=== PATIENT | male | born 1965 | race Caucasian/White ===

== ENCOUNTER 2024-09-14 19:26 | Inpatient (IN) | payer MEDICAID ==
[2024-09-13] MEDS: VECURONIUM BROMIDE 10 MG/VIAL IV ONE (22:13)
[~2024-09-14] VITALS: Ht 167.6 cm; Wt 87.1 kg
[2024-09-14] MEDS: LEVETIRACETAM 500MG PREMIX 100 ML IV ONE (20:00)
[2024-09-14 21:33] LABS: BASOPHILS % 0.2 % (0.0-2.0); HEMATOCRIT. 40.4 % (42.0-52.0); HEMOGLOBIN. 12.6 g/dL (14.0-18.0); LYMPHOCYTES % 18.4 % (20.0-50.0); MEAN CORPUSCULAR HEMOGLOBIN 27.9 pg (28.0-32.0); MEAN CORPUSCULAR HGB CONC 31.2 g/dL (31.0-37.0); MEAN CORPUSCULAR VOLUME 89.3 fL (80.0-94.0); MONOCYTES % 6.7 % (2.0-8.0); NEUTROPHILS % 72.7 % (40.0-76.0); RED BLOOD CELL COUNT 4.52 mill/uL (4.7-6.1); RED CELL DISTRIBUTION WIDTH 22.1 % (11.6-14.6); WHITE BLOOD COUNT 12.1 x1000/uL (4.5-11.0)
[2024-09-14] MEDS: PANTOPRAZOLE SODIUM 40 MG/VIAL IV STA (21:33)
[2024-09-14] MEDS ORDERED: PANTOPRAZOLE 80 MG in SODIUM CHLORIDE 0.9% 100 ML IV STA (21:33)
[2024-09-14 21:34] LABS: DIFFERENTIAL COMMENT 1
[2024-09-14 21:36] LABS: CHLORIDE 102 mEq/L (98-107); POTASSIUM 4.8 mEq/L (3.5-5.1); SODIUM 138 mEq/L (136-145)
[2024-09-14 21:37] LABS: CALCIUM 9.4 mg/dL (8.7-10.4); CARBON DIOXIDE 22 mEq/L (21-32); PROTHROMBIN TIME 11.6 sec (9.6-11.0)
[2024-09-14 21:42] LABS: CREATININE 1.9 mg/dL (0.6-1.3); GLUCOSE 234 mg/dL (70-105); UREA NITROGEN BLOOD 50 mg/dL (9-23)
[2024-09-14 21:44] LABS: ALANINE AMINOTRANSFERASE 69 IU/L (10-49); ALBUMIN 3.9 g/dL (3.2-4.8); ASPARTATE AMINOTRANSFERASE 105 IU/L (<34); BILIRUBIN DIRECT 0.5 mg/dL (<=3.0); BILIRUBIN TOTAL 1.4 mg/dL (0.1-1.0); PROTEIN TOTAL 6.9 g/dL (6.0-8.3); TROPONIN I HIGH SENSITIVITY 7 ng/L (3.0-53)
[2024-09-14] MEDS: VANCOMYCIN 1G PREMIX 200 ML IV ONE (21:45)
[2024-09-14] MEDS ORDERED: OCTREOTIDE 1,000 MCG in SODIUM CHLORIDE 0.9% 98 ML IV ONE (21:45)
[2024-09-14] MEDS: PIPERACILLIN/TAZO 3.375G/50ML 50 ML IV ONE (21:45)
[2024-09-14] MEDS: MIDAZOLAM 100MG/100ML PMX 100 ML IV STA (22:02)
[2024-09-14] MEDS: ETOMIDATE 2MG/ML 10ML VIAL IV ONE (22:12)
[2024-09-14] MEDS ORDERED: FENTANYL 2500MCG/250ML PMX 250 ML IV ONE (22:15)
[2024-09-14 22:19] LABS: MEAN PLATELET VOLUME 9.9 fl (7.4-10.4); PLATELET 158 x1000/uL (130-400)
[2024-09-14 22:25] VITALS: PULSE 72; RESP 16; O2SAT 100
[2024-09-14] MEDS: PANTOPRAZOLE 80 MG in SODIUM CHLORIDE 0.9% 100 ML IV ONE (22:30)
[2024-09-14] MEDS: LORAZEPAM 2MG/ML INJ IV ONE (22:31)
[2024-09-14 23:02] LABS: BASOPHILS % 0.3 % (0.0-2.0); EOSINOPHILS % 0.3 % (0.0-5.0); HEMATOCRIT. 43.9 % (42.0-52.0); HEMOGLOBIN. 14.1 g/dL (14.0-18.0); LYMPHOCYTES % 10.7 % (20.0-50.0); MEAN CORPUSCULAR HEMOGLOBIN 28.5 pg (28.0-32.0); MEAN CORPUSCULAR HGB CONC 32.1 g/dL (31.0-37.0); MEAN CORPUSCULAR VOLUME 88.7 fL (80.0-94.0); NEUTROPHILS % 79.7 % (40.0-76.0); RED BLOOD CELL COUNT 4.95 mill/uL (4.7-6.1)
[2024-09-14] MEDS: OCTREOTIDE ACETATE 50 MCG/ML 1ML IV STA (23:04)
[2024-09-14 23:11] LABS: DIFFERENTIAL COMMENT 1
[2024-09-14] MEDS ORDERED: NOREPINEPHRINE 8MG/250ML PMX 250 ML IV PRN (23:15)
[2024-09-14 23:33] LABS: MEAN PLATELET VOLUME 9.7 fl (7.4-10.4); PLATELET 124 x1000/uL (130-400)
[2024-09-14 23:42] VITALS: PULSE 150; RESP 16; O2SAT 100
[2024-09-14] MEDS: NOREPINEPHRINE 8 MG in DEXT 5% WATER 242 ML IV STA (23:53)
[2024-09-15] VITALS (99 sets, daily range): BP systolic 58–165; BP diastolic 38–113; PULSE 75–168; RESP 12–32; TEMP 36.44736–37.11408; O2SAT 95–100
[2024-09-15] MEDS: SODIUM CHLORIDE 0.9% (SEPSIS BOLUS) IV ONE (00:46)
[2024-09-15] MEDS ORDERED: MAGNESIUM/ALUMINUM HYDROXIDE/SIMETHICONE 30ML UDC PO PRN (01:15)
[2024-09-15] MEDS ORDERED: DOCUSATE SODIUM 100MG CAPSULE PO PRN (01:15)
[2024-09-15] MEDS ORDERED: ACETAMINOPHEN 325MG TABLET PO PRN (01:15)
[2024-09-15] MEDS ORDERED: ONDANSETRON HCL 4MG/2ML INJ IV PRN ×2 (01:15→01:30)
[2024-09-15 01:21] LABS: BG BASE EXCESS -8.2 mmol/L (-2.0-3.0); BG CARBOXYHEMOGLOBIN 0.5 % (0.5-1.5); BG DEOXYHEMOGLOBIN 1.1 % (0.0-5.0); BG FRACTION INSPIRED OXYGEN 60; BG HCO3 ACT 17.5 mmol/L (21.0-28.0); BG METHEMOGLOBIN 0.3 % (0.5-1.5); BG OXYGEN SATURATION 98.9 % (94.0-98.0); BG OXYHEMOGLOBIN 98.1 % (94.0-98.0); BG PCO2 36.6 mmHg (35.0-48.0); BG PH 7.297 (7.350-7.450); BG PO2 144.9 mmHg (83.0-108.0); BG SAMPLE SITE ALINE; BG TOTAL HEMOGLOBIN 14.2 g/dL (13.5-17.5); BG VENT MODE VENT - AC
[2024-09-15] MEDS ORDERED: VASOPRESSIN 20 UNIT in SODIUM CHLORIDE 0.9% 99 ML IV PRN (01:30)
[2024-09-15] MEDS ORDERED: EPINEPHRINE 10 MG in SODIUM CHLORIDE 0.9% 240 ML IV PRN (01:30)
[2024-09-15] MEDS ORDERED: PROPOFOL 10MG/ML 100ML 100 ML IV PRN (01:30)
[2024-09-15] MEDS: SODIUM CHLORIDE 0.9% 1,000 ML IV ONE ×2 (01:30→02:17)
[2024-09-15] MEDS ORDERED: PHENYLEPHRINE 100 MG in DEXT 5% WATER 240 ML IV PRN (01:30)
[2024-09-15] MEDS ORDERED: IPRATROPIUM/ALBUTEROL 0.5-3(2.5)MG/3ML NEB HHN PRN (01:30)
[2024-09-15 01:54] LABS: HEMATOCRIT 36.9 % (42.0-52.0); HEMOGLOBIN 11.9 g/dL (14.0-18.0)
[2024-09-15 02:11] LABS: IRON 291 ug/dL (65-175)
[2024-09-15 02:14] LABS: PHOSPHORUS 2.6 mg/dL (2.5-4.9); TOTAL IRON BINDING CAPACITY 327 ug/dl (250-425)
[2024-09-15] MEDS: PHENYLEPHRINE 100 MG in DEXT 5% WATER 240 ML IV PRN (02:17)
[2024-09-15] MEDS: SODIUM CHLORIDE 0.9% 1,000 ML IV SCH (02:17)
[2024-09-15] MEDS: FENTANYL CITRATE 2,500 MCG in SODIUM CHLORIDE 0.9% 200 ML IV PRN (02:23)
[2024-09-15] MEDS ORDERED: MAGNESIUM 2 G PREMIX 50 ML IV NR (02:45)
[2024-09-15] MEDS ORDERED: PIPERACILLIN/TAZO 3.375G/50ML 50 ML IV NR (02:45)
[2024-09-15] MEDS ORDERED: PANTOPRAZOLE SODIUM 40 MG/VIAL IV NR (02:45)
[2024-09-15] MEDS ORDERED: VANCOMYCIN 1G PREMIX 200 ML IV NR (02:45)
[2024-09-15 03:30] LABS: HEPATITIS B SURFACE ANTIGEN NEGATIVE (Negative)
[2024-09-15 03:51] LABS: HEPATITIS A AB IGM NEGATIVE (Negative); HEPATITIS B CORE AB IGM NEGATIVE (Negative)
[2024-09-15 03:52] LABS: HEPATITIS C AB NON REACTIVE (Neg) (Negative)
[2024-09-15] MEDS: OCTREOTIDE 1,000 MCG in SODIUM CHLORIDE 0.9% 98 ML IV ONE (03:56)
[2024-09-15] MEDS: EPINEPHRINE 10 MG in SODIUM CHLORIDE 0.9% 240 ML IV PRN (03:57)
[2024-09-15] MEDS: VASOPRESSIN 20 UNIT in SODIUM CHLORIDE 0.9% 99 ML IV PRN (04:56)
[2024-09-15] MEDS ORDERED: IOHEXOL-350 100 ML BOTTLE ONE (05:19)
[2024-09-15] MEDS: DEXT 5%/0.45% NACL 1000ML 1,000 ML IV SCH (06:51)
[2024-09-15] MEDS: MIDAZOLAM 100MG/100ML PMX 100 ML IV PRN ×2 (06:52→10:24)
[2024-09-15] MEDS: MAGNESIUM 2 G PREMIX 50 ML IV NR (06:54)
[2024-09-15] MEDS: SODIUM CHLORIDE 0.9% 500 ML IV ONE ×2 (08:43→10:20)
[2024-09-15 08:45] LABS: CLARITY URINE CLOUDY (CLEAR); COLOR URINE YELLOW (YELLOW); GLUCOSE URINE TRACE (NEGATIVE); KETONES URINE TRACE (NEGATIVE); LEUKOCYTE ESTERASE URINE 1+ (NEGATIVE); NITRITE URINE NEGATIVE (NEGATIVE); OCCULT BLOOD URINE NEGATIVE (NEGATIVE); PROTEIN URINE 1+ (NEGATIVE); SPECIFIC GRAVITY URINE 1.057 (1.005-1.030)
[2024-09-15] MEDS ORDERED: FOLIC ACID 1MG TABLET PO SCH (09:00)
[2024-09-15] MEDS ORDERED: LEVETIRACETAM 500MG in NACL 100ML PREMIX IV SCH (09:00)
[2024-09-15] MEDS ORDERED: MULTIVITAMINS,THER W-MINERALS TABLET PO SCH (09:00)
[2024-09-15 09:01] LABS: *AMPHETAMINES SCREEN URINE NEGATIVE (NEGATIVE); *BARBITURATES SCREEN URINE NEGATIVE (NEGATIVE); *BENZODIAZEPINES SCREEN URINE PRESUMPTIVE POSITIVE (NEGATIVE); *COCAINE SCREEN URINE NEGATIVE (NEGATIVE); METHADONE URINE SCREEN NEGATIVE (NEGATIVE); OPIATES URINE SCREEN NEGATIVE (NEGATIVE)
[2024-09-15 09:02] LABS: CANNABINOID URINE SCREEN NEGATIVE (NEGATIVE); ECSTASY MDMA SCREEN URINE NEGATIVE (NEGATIVE); PHENCYCLIDINE URINE SCREEN NEGATIVE (NEGATIVE)
[2024-09-15] MEDS: LEVETIRACETAM 500MG PREMIX 100ML IV SCH (09:13)
[2024-09-15 09:37] LABS: BACTERIA URINE 1+; RBC URINE NONE SEEN /hpf (0-2); SQUAMOUS EPITHELIAL CELL URINE NONE SEEN /lpf (RARE/1+); WBC URINE 15-25 /hpf (0-2); YEAST URINE NONE SEEN
[2024-09-15 09:55] LABS: CHLORIDE 108 mEq/L (98-107); POTASSIUM 3.8 mEq/L (3.5-5.1); SODIUM 138 mEq/L (136-145)
[2024-09-15 09:56] LABS: CARBON DIOXIDE 17 mEq/L (21-32); HEMATOCRIT 33.4 % (42.0-52.0); HEMOGLOBIN 10.7 g/dL (14.0-18.0); MEAN CORPUSCULAR HEMOGLOBIN 28.9 pg (28.0-32.0); MEAN CORPUSCULAR HGB CONC 32.2 g/dL (31.0-37.0); MEAN CORPUSCULAR VOLUME 89.9 fL (80.0-94.0); PLATELET 93 x1000/uL (130-400); RED BLOOD CELL COUNT 3.72 mill/uL (4.7-6.1); WHITE BLOOD COUNT 23.1 x1000/uL (4.5-11.0)
[2024-09-15 10:00] LABS: IRON 167 ug/dL (65-175)
[2024-09-15 10:01] LABS: CREATININE 2.2 mg/dL (0.6-1.3); GLUCOSE 342 mg/dL (70-105); UREA NITROGEN BLOOD 59 mg/dL (9-23)
[2024-09-15 10:03] LABS: CREATINE KINASE 95 IU/L (46-171); PHOSPHORUS 2.1 mg/dL (2.5-4.9); TOTAL IRON BINDING CAPACITY 293 ug/dl (250-425)
[2024-09-15 10:12] LABS: ETHANOL BLOOD < 10 mg/dL (<10)
[2024-09-15] MEDS: FENTANYL CITRATE/PF 2,500 MCG in SODIUM CHLORIDE 0.9% 200 ML IV PRN (10:28)
[2024-09-15] MEDS: NOREPINEPHRINE 8MG/250ML PMX 250 ML IV PRN (12:31)
[2024-09-15] MEDS: PANTOPRAZOLE 80 MG in SODIUM CHLORIDE 0.9% 100 ML IV SCH (14:41)
[2024-09-15] MEDS: PIPERACILLIN/TAZO 3.375G/100ML 100 ML IV SCH (14:47)
[2024-09-15] MEDS: VANCOMYCIN 1.25GM PMX (XELLIA) 250 ML IV SCH (14:47)
[2024-09-15] MEDS: OCTREOTIDE 1,000 MCG in SODIUM CHLORIDE 0.9% 98 ML IV SCH (20:52)
[2024-09-15] MEDS: PANTOPRAZOLE SODIUM 40 MG/VIAL IV SCH (21:01)
[2024-09-15 21:12] LABS: HEMATOCRIT 32.8 % (42.0-52.0); HEMOGLOBIN 10.4 g/dL (14.0-18.0)
[2024-09-16] VITALS (104 sets, daily range): BP systolic 65–164; BP diastolic 47–139; PULSE 66–123; RESP 11–25; TEMP 36.114–37.39188; O2SAT 80–100
[2024-09-16 01:21] LABS: HEMATOCRIT 34.5 % (42.0-52.0); HEMOGLOBIN 11.2 g/dL (14.0-18.0)
[2024-09-16 01:49] LABS: TROPONIN I HIGH SENSITIVITY 56 ng/L (3.0-53)
[2024-09-16 05:19] LABS: CARBON DIOXIDE 24 mEq/L (21-32); CHLORIDE 108 mEq/L (98-107); POTASSIUM 3.8 mEq/L (3.5-5.1); SODIUM 139 mEq/L (136-145)
[2024-09-16 05:20] LABS: CALCIUM 7.1 mg/dL (8.7-10.4)
[2024-09-16 05:24] LABS: IRON 76 ug/dL (65-175)
[2024-09-16 05:25] LABS: CREATININE 1.7 mg/dL (0.6-1.3); TRIGLYCERIDE 135 mg/dL (0-150); UREA NITROGEN BLOOD 39 mg/dL (9-23)
[2024-09-16 05:26] LABS: ALANINE AMINOTRANSFERASE 103 IU/L (10-49); ASPARTATE AMINOTRANSFERASE 127 IU/L (<34); FOLIC ACID (FOLATE) SERUM 7.97 ng/mL (>5.38); LDL CHOLESTEROL 44 mg/dL (5-100)
[2024-09-16 05:27] LABS: ALBUMIN 2.7 g/dL (3.2-4.8); BILIRUBIN DIRECT 0.8 mg/dL (<=3.0); BILIRUBIN TOTAL 1.5 mg/dL (0.1-1.0); CHOLESTEROL 88 mg/dL (<200); FERRITIN 167 ng/mL (22-322); HDL CHOLESTEROL < 20 mg/dL (>55); PHOSPHORUS 1.5 mg/dL (2.5-4.9); T4 FREE 1.05 ng/dL (0.89-1.76); TOTAL IRON BINDING CAPACITY 286 ug/dl (250-425); VITAMIN B12 SERUM 837 pg/mL (211-911)
[2024-09-16 05:28] LABS: THYROID STIMULATING HORMONE 0.12 uIU/mL (0.55-4.78)
[2024-09-16 05:31] LABS: LACTIC ACID 2.2 mmol/L (0.4-2.0)
[2024-09-16 05:42] LABS: GLUCOSE 179 mg/dL (70-105); PROTEIN TOTAL 4.8 g/dL (6.0-8.3)
[2024-09-16 05:46] LABS: BASOPHILS % 0.3 % (0.0-2.0); EOSINOPHILS % 2.9 % (0.0-5.0); HEMATOCRIT. 30.2 % (42.0-52.0); HEMOGLOBIN. 9.7 g/dL (14.0-18.0); LYMPHOCYTES % 11.9 % (20.0-50.0); MEAN CORPUSCULAR HEMOGLOBIN 29.6 pg (28.0-32.0); MEAN CORPUSCULAR HGB CONC 32.2 g/dL (31.0-37.0); MEAN CORPUSCULAR VOLUME 91.9 fL (80.0-94.0); MEAN PLATELET VOLUME 9.3 fl (7.4-10.4); MONOCYTES % 10.6 % (2.0-8.0); NEUTROPHILS % 74.3 % (40.0-76.0); PLATELET 87 x1000/uL (130-400); RED BLOOD CELL COUNT 3.28 mill/uL (4.7-6.1); RED CELL DISTRIBUTION WIDTH 18.7 % (11.6-14.6); WHITE BLOOD COUNT 13.6 x1000/uL (4.5-11.0)
[2024-09-16] MEDS: MAGNESIUM 2 G PREMIX 50 ML IV NR ×2 (06:45→15:23)
[2024-09-16] MEDS: SODIUM PHOSPHATE 15 MMOL in SODIUM CHLORIDE 0.9% 245 ML IV NR (07:08)
[2024-09-16] MEDS ORDERED: MAGNESIUM 2 G PREMIX 50 ML IV NR (07:45)
[2024-09-16 08:24] LABS: BG BASE EXCESS -4.1 mmol/L (-2.0-3.0); BG CARBOXYHEMOGLOBIN 0.3 % (0.5-1.5); BG DEOXYHEMOGLOBIN 4.8 % (0.0-5.0); BG FRACTION INSPIRED OXYGEN 30; BG HCO3 ACT 21.4 mmol/L (21.0-28.0); BG METHEMOGLOBIN 0.1 % (0.5-1.5); BG OXYGEN SATURATION 95.2 % (94.0-98.0); BG OXYHEMOGLOBIN 94.8 % (94.0-98.0); BG PCO2 40.5 mmHg (35.0-48.0); BG SAMPLE SITE RIGHT RADIAL; BG TOTAL HEMOGLOBIN 10.3 g/dL (13.5-17.5); BG VENT MODE VENT - AC
[2024-09-16] MEDS ORDERED: POTASSIUM PHOSPHATE 20 MMOL in SODIUM CHLORIDE 0.9% 243.3333 ML IV NR (09:00)
[2024-09-16] MEDS: BISACODYL 10MG SUPP PR SCH (13:53)
[2024-09-16] MEDS: VANCOMYCIN 1G PREMIX 200 ML IV SCH (15:23)
[2024-09-16] MEDS: LEVETIRACETAM 1000MG PREMIX 100 ML IV SCH (15:58)
[2024-09-16] MEDS: POTASSIUM PHOSPHATE 20 MMOL in SODIUM CHLORIDE 0.9% 250 ML IV NR (17:08)
[2024-09-16 17:45] LABS: POTASSIUM 3.5 mEq/L (3.5-5.1)
[2024-09-16 17:47] LABS: CALCIUM 6.8 mg/dL (8.7-10.4)
[2024-09-16 17:51] LABS: CREATININE 1.4 mg/dL (0.6-1.3)
[2024-09-16 18:09] LABS: HEMATOCRIT 25.8 % (42.0-52.0); HEMOGLOBIN 8.8 g/dL (14.0-18.0)
[2024-09-16] MEDS ORDERED: LEVETIRACETAM 1,000MG in NACL 100ML PREMIX IV SCH (21:00)
[2024-09-16] MEDS ORDERED: PIPERACILLIN/TAZO 3.375G/50ML 50 ML IV SCH (22:00)
[2024-09-16 22:09] LABS: HEMATOCRIT 26.1 % (42.0-52.0); HEMOGLOBIN 8.6 g/dL (14.0-18.0)
[2024-09-16 22:17] LABS: AMMONIA 53 uMol/L (<32)
[2024-09-17] VITALS (107 sets, daily range): BP systolic 75–136; BP diastolic 51–91; PULSE 62–108; RESP 12–26; TEMP 36.55848–36.9474; O2SAT 99–100
[2024-09-17 05:58] LABS: BASOPHILS % 0.2 % (0.0-2.0); EOSINOPHILS % 4.9 % (0.0-5.0); HEMATOCRIT. 27.4 % (42.0-52.0); HEMOGLOBIN. 9.1 g/dL (14.0-18.0); LYMPHOCYTES % 13.2 % (20.0-50.0); MEAN CORPUSCULAR HEMOGLOBIN 30.5 pg (28.0-32.0); MEAN CORPUSCULAR HGB CONC 33.2 g/dL (31.0-37.0); MEAN CORPUSCULAR VOLUME 92.1 fL (80.0-94.0); MEAN PLATELET VOLUME 9.7 fl (7.4-10.4); MONOCYTES % 12.3 % (2.0-8.0); NEUTROPHILS % 69.4 % (40.0-76.0); PLATELET 86 x1000/uL (130-400); RED BLOOD CELL COUNT 2.98 mill/uL (4.7-6.1); RED CELL DISTRIBUTION WIDTH 19.2 % (11.6-14.6); WHITE BLOOD COUNT 9.1 x1000/uL (4.5-11.0)
[2024-09-17 06:09] LABS: CALCIUM 6.8 mg/dL (8.7-10.4); CARBON DIOXIDE 25 mEq/L (21-32); CHLORIDE 103 mEq/L (98-107); POTASSIUM 3.3 mEq/L (3.5-5.1); SODIUM 135 mEq/L (136-145)
[2024-09-17 06:13] LABS: CREATININE 1.1 mg/dL (0.6-1.3)
[2024-09-17 06:14] LABS: GLUCOSE 141 mg/dL (70-105)
[2024-09-17] MEDS: FENTANYL 2500MCG/250ML PMX 250 ML IV PRN (06:14)
[2024-09-17 06:15] LABS: UREA NITROGEN BLOOD 13 mg/dL (9-23)
[2024-09-17] MEDS: MAGNESIUM 4 G PREMIX 100 ML IV NR (08:42)
[2024-09-17] MEDS: THIAMINE HCL 100MG TABLET PO SCH (09:00)
[2024-09-17 09:22] LABS: BG BASE EXCESS -2.7 mmol/L (-2.0-3.0); BG CARBOXYHEMOGLOBIN 0.3 % (0.5-1.5); BG DEOXYHEMOGLOBIN 3.2 % (0.0-5.0); BG FRACTION INSPIRED OXYGEN 30; BG HCO3 ACT 21.8 mmol/L (21.0-28.0); BG METHEMOGLOBIN 0.3 % (0.5-1.5); BG OXYGEN SATURATION 96.8 % (94.0-98.0); BG OXYHEMOGLOBIN 96.2 % (94.0-98.0); BG PCO2 36.6 mmHg (35.0-48.0); BG PH 7.393 (7.350-7.450); BG PO2 85.4 mmHg (83.0-108.0); BG SAMPLE SITE RIGHT RADIAL; BG TOTAL HEMOGLOBIN 9.6 g/dL (13.5-17.5); BG TOTAL RESPIRATORY RATE 21 b/min; BG VENT MODE VENT - AC
[2024-09-17] MEDS: POTASSIUM PHOSPHATE 20 MMOL in SODIUM CHLORIDE 0.9% 243.3333 ML IV NR (10:03)
[2024-09-17 10:11] LABS: PROTHROMBIN TIME 11.3 sec (9.6-11.0)
[2024-09-17] MEDS: VANCOMYCIN 1G PREMIX 200 ML IV SCH (11:02)
[2024-09-17 12:15] LABS: HEMATOCRIT 27.4 % (42.0-52.0)
[2024-09-17] MEDS: KCL 20MEQ/100ML PREMIX 100 ML IV NR (13:28)
[2024-09-18] VITALS (110 sets, daily range): BP systolic 73–146; BP diastolic 49–97; PULSE 62–125; RESP 13–30; TEMP 36.78072–38.00304; O2SAT 96–100
[2024-09-18] MEDS: DEXMEDETOMIDINE 400 MCG/100 ML 100 ML IV PRN (01:56)
[2024-09-18 06:25] LABS: HEMOGLOBIN. 9.9 g/dL (14.0-18.0); MEAN CORPUSCULAR HGB CONC 32.9 g/dL (31.0-37.0); MEAN CORPUSCULAR VOLUME 94.3 fL (80.0-94.0); MEAN PLATELET VOLUME 8.8 fl (7.4-10.4); PLATELET 135 x1000/uL (130-400); RED BLOOD CELL COUNT 3.18 mill/uL (4.7-6.1); RED CELL DISTRIBUTION WIDTH 18.7 % (11.6-14.6); WHITE BLOOD COUNT 5.4 x1000/uL (4.5-11.0)
[2024-09-18 06:27] LABS: CALCIUM 7.9 mg/dL (8.7-10.4); CHLORIDE 113 mEq/L (98-107); POTASSIUM 4.1 mEq/L (3.5-5.1); SODIUM 143 mEq/L (136-145)
[2024-09-18 06:28] LABS: CARBON DIOXIDE 22 mEq/L (21-32)
[2024-09-18 06:33] LABS: GLUCOSE 169 mg/dL (70-105)
[2024-09-18 06:34] LABS: AMMONIA 51 uMol/L (<32); UREA NITROGEN BLOOD 8 mg/dL (9-23)
[2024-09-18 06:36] LABS: PHOSPHORUS 1.7 mg/dL (2.5-4.9)
[2024-09-18 07:23] LABS: DIFFERENTIAL COMMENT 1
[2024-09-18 10:22] LABS: BG BASE EXCESS -4.3 mmol/L (-2.0-3.0); BG CARBOXYHEMOGLOBIN 0.5 % (0.5-1.5); BG DEOXYHEMOGLOBIN 3.3 % (0.0-5.0); BG FRACTION INSPIRED OXYGEN 30; BG HCO3 ACT 19.7 mmol/L (21.0-28.0); BG METHEMOGLOBIN 0.3 % (0.5-1.5); BG OXYGEN SATURATION 96.7 % (94.0-98.0); BG OXYHEMOGLOBIN 95.9 % (94.0-98.0); BG PCO2 32.1 mmHg (35.0-48.0); BG PH 7.405 (7.350-7.450); BG PO2 84.9 mmHg (83.0-108.0); BG SAMPLE SITE RIGHT RADIAL; BG TOTAL HEMOGLOBIN 10.1 g/dL (13.5-17.5); BG VENT MODE VENT - AC
[2024-09-18 23:18] LABS: PLATELET ESTIMATE NORMAL
[2024-09-19] VITALS (110 sets, daily range): BP systolic 98–168; BP diastolic 66–110; PULSE 53–77; RESP 9–32; TEMP 35.5584–36.83628; O2SAT 99–100
[2024-09-19 05:29] LABS: CARBON DIOXIDE 19 mEq/L (21-32); CHLORIDE 114 mEq/L (98-107); POTASSIUM 3.8 mEq/L (3.5-5.1); SODIUM 144 mEq/L (136-145)
[2024-09-19 05:30] LABS: CALCIUM 8.1 mg/dL (8.7-10.4)
[2024-09-19 05:35] LABS: CREATININE 1.1 mg/dL (0.6-1.3); GLUCOSE 163 mg/dL (70-105); UREA NITROGEN BLOOD 8 mg/dL (9-23)
[2024-09-19 05:37] LABS: PHOSPHORUS 2.1 mg/dL (2.5-4.9)
[2024-09-19 09:16] LABS: BG BASE EXCESS -4.5 mmol/L (-2.0-3.0); BG CARBOXYHEMOGLOBIN 0.5 % (0.5-1.5); BG DEOXYHEMOGLOBIN 1.9 % (0.0-5.0); BG FRACTION INSPIRED OXYGEN 30; BG HCO3 ACT 19.7 mmol/L (21.0-28.0); BG METHEMOGLOBIN 0.3 % (0.5-1.5); BG OXYGEN SATURATION 98.1 % (94.0-98.0); BG OXYHEMOGLOBIN 97.3 % (94.0-98.0); BG PCO2 33.1 mmHg (35.0-48.0); BG PH 7.393 (7.350-7.450); BG PO2 106.6 mmHg (83.0-108.0); BG SAMPLE SITE RIGHT RADIAL; BG TOTAL HEMOGLOBIN 10.2 g/dL (13.5-17.5); BG VENT MODE VENT - AC
[2024-09-19] MEDS: HYDRALAZINE 20MG/ML VIAL IV PRN (09:47)
[2024-09-19] MEDS: MAGNESIUM 2 G PREMIX 50 ML IV NR (09:47)
[2024-09-19] MEDS: CLONIDINE 0.1MG TABLET PO PRN (09:48)
[2024-09-19 10:41] LABS: HEMATOCRIT. 28.1 % (42.0-52.0); MEAN CORPUSCULAR HEMOGLOBIN 30.3 pg (28.0-32.0); MEAN CORPUSCULAR VOLUME 94.7 fL (80.0-94.0); MEAN PLATELET VOLUME 8.7 fl (7.4-10.4); PLATELET 157 x1000/uL (130-400); RED BLOOD CELL COUNT 2.97 mill/uL (4.7-6.1); RED CELL DISTRIBUTION WIDTH 19.5 % (11.6-14.6); WHITE BLOOD COUNT 4.4 x1000/uL (4.5-11.0)
[2024-09-19 10:45] LABS: DIFFERENTIAL COMMENT 1
[2024-09-19] MEDS ORDERED: ALBUTEROL (0.083%) 2.5MG/3ML NEB HHN PRN (12:45)
[2024-09-19 13:40] LABS: ANISOCYTOSIS 2+; NUCLEATED RED BLOOD CELLS 1 /100 WBC; PLATELET ESTIMATE NORMAL
[2024-09-19] MEDS: POTASSIUM PHOSPHATE 15 MMOL in SODIUM CHLORIDE 0.9% 250 ML IV NR (19:26)
[2024-09-20] VITALS (103 sets, daily range): BP systolic 101–184; BP diastolic 68–110; PULSE 47–74; RESP 8–25; TEMP 36.114–37.00296; O2SAT 94–100
[2024-09-20 06:43] LABS: MEAN CORPUSCULAR HEMOGLOBIN 31.1 pg (28.0-32.0); MEAN CORPUSCULAR HGB CONC 32.7 g/dL (31.0-37.0); MEAN CORPUSCULAR VOLUME 95.1 fL (80.0-94.0); PLATELET 209 x1000/uL (130-400); RED BLOOD CELL COUNT 3.43 mill/uL (4.7-6.1)
[2024-09-20 06:51] LABS: CALCIUM 8.5 mg/dL (8.7-10.4); CHLORIDE 111 mEq/L (98-107); POTASSIUM 4.2 mEq/L (3.5-5.1); SODIUM 141 mEq/L (136-145)
[2024-09-20 06:52] LABS: CARBON DIOXIDE 18 mEq/L (21-32)
[2024-09-20 06:57] LABS: GLUCOSE 159 mg/dL (70-105); UREA NITROGEN BLOOD 6 mg/dL (9-23)
[2024-09-20 06:59] LABS: PHOSPHORUS 2.6 mg/dL (2.5-4.9)
[2024-09-20 08:10] LABS: DIFFERENTIAL COMMENT 1
[2024-09-20 08:11] LABS: HEMOGLOBIN. 10.7 g/dL (14.0-18.0)
[2024-09-20 08:12] LABS: HEMATOCRIT. 32.6 % (42.0-52.0)
[2024-09-20] MEDS: MAGNESIUM 4 G PREMIX 100 ML IV NR (10:45)
[2024-09-20 10:56] LABS: BG BASE EXCESS -3.4 mmol/L (-2.0-3.0); BG CARBOXYHEMOGLOBIN 0.6 % (0.5-1.5); BG DEOXYHEMOGLOBIN 2.4 % (0.0-5.0); BG FRACTION INSPIRED OXYGEN 30; BG HCO3 ACT 20.4 mmol/L (21.0-28.0); BG METHEMOGLOBIN 0.3 % (0.5-1.5); BG OXYGEN SATURATION 97.6 % (94.0-98.0); BG OXYHEMOGLOBIN 96.7 % (94.0-98.0); BG PCO2 32.3 mmHg (35.0-48.0); BG PH 7.418 (7.350-7.450); BG SAMPLE SITE RIGHT RADIAL; BG TOTAL HEMOGLOBIN 10.2 g/dL (13.5-17.5); BG VENT MODE VENT - AC
[2024-09-20 16:21] LABS: PLATELET ESTIMATE NORMAL
[2024-09-20 18:11] LABS: HEMATOCRIT 31.4 % (42.0-52.0); HEMOGLOBIN 10.1 g/dL (14.0-18.0)
[2024-09-21] VITALS (85 sets, daily range): BP systolic 86–169; BP diastolic 56–137; PULSE 56–82; RESP 10–24; TEMP 36.22512–36.6696; O2SAT 98–100
[2024-09-21] MEDS: QUETIAPINE FUMARATE 50MG TABLET PO NR (01:21)
[2024-09-21] MEDS: DIPHENHYDRAMINE 50MG/ML VIAL IV NR (01:22)
[2024-09-21 05:47] LABS: BASOPHILS % 0.3 % (0.0-2.0); DIFFERENTIAL COMMENT 0; EOSINOPHILS % 4.8 % (0.0-5.0); HEMATOCRIT. 30.8 % (42.0-52.0); HEMOGLOBIN. 10.1 g/dL (14.0-18.0); INR 1.1; LYMPHOCYTES % 10.5 % (20.0-50.0); MEAN CORPUSCULAR HEMOGLOBIN 30.9 pg (28.0-32.0); MEAN CORPUSCULAR HGB CONC 32.8 g/dL (31.0-37.0); MEAN CORPUSCULAR VOLUME 94.2 fL (80.0-94.0); MEAN PLATELET VOLUME 9.1 fl (7.4-10.4); MONOCYTES % 13.7 % (2.0-8.0); NEUTROPHILS % 70.7 % (40.0-76.0); PLATELET 288 x1000/uL (130-400); PROTHROMBIN TIME 11.9 sec (9.6-11.0); RED BLOOD CELL COUNT 3.27 mill/uL (4.7-6.1); WHITE BLOOD COUNT 6.1 x1000/uL (4.5-11.0)
[2024-09-21 06:03] LABS: CHLORIDE 110 mEq/L (98-107); POTASSIUM 3.5 mEq/L (3.5-5.1); SODIUM 142 mEq/L (136-145)
[2024-09-21 06:05] LABS: CALCIUM 8.5 mg/dL (8.7-10.4); CARBON DIOXIDE 22 mEq/L (21-32)
[2024-09-21 06:10] LABS: CREATININE 0.9 mg/dL (0.6-1.3); GLUCOSE 157 mg/dL (70-105); UREA NITROGEN BLOOD 6 mg/dL (9-23)
[2024-09-21 06:11] LABS: ALANINE AMINOTRANSFERASE 84 IU/L (10-49)
[2024-09-21 06:12] LABS: ASPARTATE AMINOTRANSFERASE 61 IU/L (<34); BILIRUBIN TOTAL 2.3 mg/dL (0.1-1.0)
[2024-09-21 06:13] LABS: PROTEIN TOTAL 5.6 g/dL (6.0-8.3)
[2024-09-21] MEDS: MAGNESIUM 2 G PREMIX 50 ML IV NR (09:15)
[2024-09-21 19:10] LABS: AMMONIA 89 uMol/L (<32)
[2024-09-22] VITALS (74 sets, daily range): BP systolic 80–167; BP diastolic 55–108; PULSE 47–140; RESP 16–37; TEMP 37.28076–37.55856; O2SAT 92–100
[2024-09-22 06:39] LABS: CHLORIDE 114 mEq/L (98-107); POTASSIUM 3.8 mEq/L (3.5-5.1); SODIUM 144 mEq/L (136-145)
[2024-09-22 06:40] LABS: CALCIUM 8.8 mg/dL (8.7-10.4); CARBON DIOXIDE 20 mEq/L (21-32)
[2024-09-22 06:45] LABS: GLUCOSE 147 mg/dL (70-105)
[2024-09-22 06:47] LABS: ALANINE AMINOTRANSFERASE 73 IU/L (10-49); ALBUMIN 3.2 g/dL (3.2-4.8); ASPARTATE AMINOTRANSFERASE 66 IU/L (<34); BILIRUBIN DIRECT 1.5 mg/dL (<=3.0)
[2024-09-22 06:48] LABS: BILIRUBIN TOTAL 2.5 mg/dL (0.1-1.0); PHOSPHORUS 2.6 mg/dL (2.5-4.9); PROTEIN TOTAL 6.2 g/dL (6.0-8.3)
[2024-09-22 06:57] LABS: UREA NITROGEN BLOOD < 5 mg/dL (9-23)
[2024-09-22 06:58] LABS: BASOPHILS % 0.6 % (0.0-2.0); EOSINOPHILS % 4.9 % (0.0-5.0); HEMATOCRIT. 33.7 % (42.0-52.0); LYMPHOCYTES % 17.2 % (20.0-50.0); MEAN CORPUSCULAR HEMOGLOBIN 30.8 pg (28.0-32.0); MEAN CORPUSCULAR HGB CONC 32.5 g/dL (31.0-37.0); MEAN CORPUSCULAR VOLUME 94.6 fL (80.0-94.0); MEAN PLATELET VOLUME 8.8 fl (7.4-10.4); MONOCYTES % 15.1 % (2.0-8.0); NEUTROPHILS % 62.2 % (40.0-76.0); PLATELET 364 x1000/uL (130-400); RED BLOOD CELL COUNT 3.56 mill/uL (4.7-6.1); RED CELL DISTRIBUTION WIDTH 20.2 % (11.6-14.6); WHITE BLOOD COUNT 8.3 x1000/uL (4.5-11.0)
[2024-09-22 07:06] LABS: DIFFERENTIAL COMMENT 1
[2024-09-22] MEDS: IPRATROPIUM/ALBUTEROL 0.5-3(2.5)MG/3ML NEB HHN PRN (08:31)
[2024-09-22] MEDS: MAGNESIUM 2 G PREMIX 50 ML IV NR (08:34)
[2024-09-22] MEDS: SUCRALFATE 1G TABLET NG SCH (08:34)
[2024-09-22 09:12] LABS: BG BASE EXCESS -7.1 mmol/L (-2.0-3.0); BG CARBOXYHEMOGLOBIN 0.5 % (0.5-1.5); BG DEOXYHEMOGLOBIN 2.5 % (0.0-5.0); BG FRACTION INSPIRED OXYGEN 30; BG HCO3 ACT 17.4 mmol/L (21.0-28.0); BG METHEMOGLOBIN 0.3 % (0.5-1.5); BG OXYGEN SATURATION 97.5 % (94.0-98.0); BG OXYHEMOGLOBIN 96.7 % (94.0-98.0); BG PCO2 31.7 mmHg (35.0-48.0); BG PH 7.357 (7.350-7.450); BG PO2 103.5 mmHg (83.0-108.0); BG SAMPLE SITE RIGHT RADIAL; BG TOTAL HEMOGLOBIN 11.3 g/dL (13.5-17.5); BG VENT MODE VENT - AC
[2024-09-22 10:17] LABS: BG BASE EXCESS -7.2 mmol/L (-2.0-3.0); BG CARBOXYHEMOGLOBIN 0.3 % (0.5-1.5); BG DEOXYHEMOGLOBIN 2.6 % (0.0-5.0); BG FRACTION INSPIRED OXYGEN 30; BG HCO3 ACT 17.1 mmol/L (21.0-28.0); BG METHEMOGLOBIN 0.3 % (0.5-1.5); BG OXYGEN SATURATION 97.4 % (94.0-98.0); BG OXYHEMOGLOBIN 96.8 % (94.0-98.0); BG PCO2 30.9 mmHg (35.0-48.0); BG PH 7.362 (7.350-7.450); BG SAMPLE SITE LEFT RADIAL; BG VENT MODE VENT - CPAP
[2024-09-22] MEDS: LACTULOSE 20G/30ML UDC PO SCH (13:43)
[2024-09-22] MEDS: METOCLOPRAMIDE HCL 10MG/2ML VIAL IV SCH (13:44)
[2024-09-23] VITALS (33 sets, daily range): BP systolic 113–165; BP diastolic 63–123; PULSE 102–124; RESP 17–34; TEMP 36.6696–36.9474; O2SAT 98–100
[2024-09-23 06:04] LABS: BASOPHILS % 0.2 % (0.0-2.0); EOSINOPHILS % 0.5 % (0.0-5.0); HEMATOCRIT. 31.2 % (42.0-52.0); LYMPHOCYTES % 8.8 % (20.0-50.0); MEAN CORPUSCULAR HEMOGLOBIN 30.4 pg (28.0-32.0); MEAN CORPUSCULAR HGB CONC 32.1 g/dL (31.0-37.0); MEAN CORPUSCULAR VOLUME 94.6 fL (80.0-94.0); MEAN PLATELET VOLUME 8.4 fl (7.4-10.4); MONOCYTES % 7.9 % (2.0-8.0); NEUTROPHILS % 82.6 % (40.0-76.0); PLATELET 517 x1000/uL (130-400); RED CELL DISTRIBUTION WIDTH 20.1 % (11.6-14.6); WHITE BLOOD COUNT 10.3 x1000/uL (4.5-11.0)
[2024-09-23 06:11] LABS: CHLORIDE 112 mEq/L (98-107); POTASSIUM 3.7 mEq/L (3.5-5.1); SODIUM 141 mEq/L (136-145)
[2024-09-23 06:12] LABS: CALCIUM 8.7 mg/dL (8.7-10.4); CARBON DIOXIDE 16 mEq/L (21-32)
[2024-09-23 06:17] LABS: CREATININE 1.1 mg/dL (0.6-1.3); GLUCOSE 123 mg/dL (70-105)
[2024-09-23 06:18] LABS: ALANINE AMINOTRANSFERASE 68 IU/L (10-49); ASPARTATE AMINOTRANSFERASE 60 IU/L (<34)
[2024-09-23 06:19] LABS: ALBUMIN 3.3 g/dL (3.2-4.8)
[2024-09-23 06:20] LABS: AMMONIA 49 uMol/L (<32); BILIRUBIN TOTAL 3.1 mg/dL (0.1-1.0); PROTEIN TOTAL 6.2 g/dL (6.0-8.3)
[2024-09-23] MEDS: ACETAMINOPHEN 325MG TABLET PO PRN (06:33)
[2024-09-23 06:38] LABS: UREA NITROGEN BLOOD < 5 mg/dL (9-23)
[2024-09-23] MEDS: MAGNESIUM 2 G PREMIX 50 ML IV NR (08:00)
[2024-09-23] MEDS: GUAIFENESIN 200MG/10ML SUGAR FREE UDC PO PRN (08:29)
[2024-09-23] MEDS: MAGNESIUM OXIDE 400MG TABLET PO NR (13:10)
[2024-09-24] VITALS (12 sets, daily range): BP systolic 117–160; BP diastolic 82–107; PULSE 91–109; RESP 16–34; TEMP 36.44736–37.61412; O2SAT 97–100
[2024-09-24 08:06] LABS: CHLORIDE 109 mEq/L (98-107); POTASSIUM 3.1 mEq/L (3.5-5.1); SODIUM 141 mEq/L (136-145)
[2024-09-24 08:10] LABS: CARBON DIOXIDE 22 mEq/L (21-32)
[2024-09-24 08:15] LABS: CREATININE 0.9 mg/dL (0.6-1.3)
[2024-09-24 08:16] LABS: GLUCOSE 131 mg/dL (70-105); UREA NITROGEN BLOOD 5 mg/dL (9-23)
[2024-09-24 08:17] LABS: ALANINE AMINOTRANSFERASE 58 IU/L (10-49); ALBUMIN 3.4 g/dL (3.2-4.8)
[2024-09-24 08:18] LABS: ASPARTATE AMINOTRANSFERASE 51 IU/L (<34); BILIRUBIN DIRECT 1.8 mg/dL (<=3.0); BILIRUBIN TOTAL 2.9 mg/dL (0.1-1.0); PROTEIN TOTAL 6.5 g/dL (6.0-8.3)
[2024-09-24 08:28] LABS: BASOPHILS % 0.3 % (0.0-2.0); EOSINOPHILS % 1.5 % (0.0-5.0); HEMATOCRIT. 29.7 % (42.0-52.0); HEMOGLOBIN. 9.9 g/dL (14.0-18.0); LYMPHOCYTES % 8.7 % (20.0-50.0); MEAN CORPUSCULAR HEMOGLOBIN 30.2 pg (28.0-32.0); MEAN CORPUSCULAR HGB CONC 33.2 g/dL (31.0-37.0); MEAN PLATELET VOLUME 8.2 fl (7.4-10.4); MONOCYTES % 7.5 % (2.0-8.0); PLATELET 594 x1000/uL (130-400); RED BLOOD CELL COUNT 3.27 mill/uL (4.7-6.1); RED CELL DISTRIBUTION WIDTH 19.9 % (11.6-14.6); WHITE BLOOD COUNT 12.1 x1000/uL (4.5-11.0)
[2024-09-24 08:31] LABS: MEAN CORPUSCULAR VOLUME 90.8 fL (80.0-94.0)
[2024-09-24] MEDS: CITALOPRAM HYDROBROMIDE 10MG TABLET PO SCH (09:38)
[2024-09-24] MEDS: MAGNESIUM OXIDE 400MG TABLET PO SCH (09:39)
[2024-09-24] MEDS: POTASSIUM CHLORIDE 20MEQ TABLET SR PO NR (09:39)
[2024-09-24] MEDS: DEXT 5%/LACTATED RINGERS 1,000 ML IV SCH (12:22)
[2024-09-24] MEDS: KCL 20MEQ/100ML PREMIX 100 ML IV NR (12:25)
[2024-09-24] MEDS: MAGNESIUM 2 G PREMIX 50 ML IV NR (12:25)
[2024-09-25] VITALS (12 sets, daily range): BP systolic 124–153; BP diastolic 29–105; PULSE 85–101; RESP 15–30; TEMP 36.16956–36.78072; O2SAT 95–99
[2024-09-25 08:00] LABS: BASOPHILS % 0.4 % (0.0-2.0); EOSINOPHILS % 2.7 % (0.0-5.0); HEMATOCRIT. 27.5 % (42.0-52.0); HEMOGLOBIN. 9.2 g/dL (14.0-18.0); LYMPHOCYTES % 9.7 % (20.0-50.0); MEAN CORPUSCULAR HGB CONC 33.5 g/dL (31.0-37.0); MEAN CORPUSCULAR VOLUME 89.6 fL (80.0-94.0); MEAN PLATELET VOLUME 7.9 fl (7.4-10.4); MONOCYTES % 7.6 % (2.0-8.0); NEUTROPHILS % 79.6 % (40.0-76.0); PLATELET 622 x1000/uL (130-400); RED BLOOD CELL COUNT 3.07 mill/uL (4.7-6.1); RED CELL DISTRIBUTION WIDTH 19.8 % (11.6-14.6); WHITE BLOOD COUNT 9.4 x1000/uL (4.5-11.0)
[2024-09-25 08:13] LABS: CHLORIDE 109 mEq/L (98-107); SODIUM 141 mEq/L (136-145)
[2024-09-25 08:14] LABS: CALCIUM 8.4 mg/dL (8.7-10.4); CARBON DIOXIDE 24 mEq/L (21-32)
[2024-09-25 08:19] LABS: GLUCOSE 116 mg/dL (70-105); UREA NITROGEN BLOOD 6 mg/dL (9-23)
[2024-09-25 08:21] LABS: ALANINE AMINOTRANSFERASE 49 IU/L (10-49); ALBUMIN 3.3 g/dL (3.2-4.8); ASPARTATE AMINOTRANSFERASE 53 IU/L (<34); BILIRUBIN DIRECT 1.4 mg/dL (<=3.0); BILIRUBIN TOTAL 2.3 mg/dL (0.1-1.0); PHOSPHORUS 1.7 mg/dL (2.5-4.9); PROTEIN TOTAL 6.2 g/dL (6.0-8.3)
[2024-09-25] MEDS: KCL 20MEQ/100ML PREMIX 100 ML IV NR (13:38)
[2024-09-25] MEDS: POTASSIUM PHOSPHATE 20 MMOL in DEXT 5% WATER 243.3333 ML IV NR (13:38)
[2024-09-25] MEDS: MAGNESIUM 4 G PREMIX 100 ML IV NR (13:38)
[2024-09-25] MEDS: POTASSIUM CHLORIDE 20MEQ TABLET SR PO SCH (13:52)
[2024-09-26] VITALS (10 sets, daily range): BP systolic 121–138; BP diastolic 79–106; PULSE 77–96; RESP 12–30; TEMP 36.6696–36.9474; O2SAT 94–98
[2024-09-26] MEDS ORDERED: PANT40VI PO (07:04)
[2024-09-26] MEDS ORDERED: SUCR1TAB NG (07:04)
[2024-09-26 10:33] LABS: BASOPHILS % 0.2 % (0.0-2.0); EOSINOPHILS % 3.5 % (0.0-5.0); HEMATOCRIT. 30.5 % (42.0-52.0); HEMOGLOBIN. 10.1 g/dL (14.0-18.0); LYMPHOCYTES % 15.7 % (20.0-50.0); MEAN CORPUSCULAR HEMOGLOBIN 30.1 pg (28.0-32.0); MEAN CORPUSCULAR HGB CONC 33.2 g/dL (31.0-37.0); MEAN CORPUSCULAR VOLUME 90.4 fL (80.0-94.0); MEAN PLATELET VOLUME 7.8 fl (7.4-10.4); MONOCYTES % 7.9 % (2.0-8.0); NEUTROPHILS % 72.7 % (40.0-76.0); PLATELET 685 x1000/uL (130-400); RED BLOOD CELL COUNT 3.37 mill/uL (4.7-6.1); RED CELL DISTRIBUTION WIDTH 19.9 % (11.6-14.6); WHITE BLOOD COUNT 9.3 x1000/uL (4.5-11.0)
[2024-09-26 12:30] LABS: CALCIUM 9.1 mg/dL (8.7-10.4); CARBON DIOXIDE 23 mEq/L (21-32); CHLORIDE 106 mEq/L (98-107); GLUCOSE 121 mg/dL (70-105); PHOSPHORUS 2.3 mg/dL (2.5-4.9); POTASSIUM 3.3 mEq/L (3.5-5.1); SODIUM 138 mEq/L (136-145); UREA NITROGEN BLOOD 8 mg/dL (9-23)
[2024-09-26] MEDS: POTASSIUM PHOSPHATE 15 MMOL in DEXT 5% WATER 245 ML IV NR (13:57)
== END 2024-09-26 16:40 | disposition home or self-care (01) | DRG 720 ==
LOC: ER 19:26 → MICUNO 09-15 00:04 → 5EST 09-23 16:00
PROVIDERS: ADMIT Preventive Medicine Clinical Informatics; ATTEND Preventive Medicine Clinical Informatics
PROC: 5A1955Z Respiratory Ventilation, Greater than 96 Consecutive Hours (ICD-10-PCS; principal; 2024-09-14)
PROC: 05HM33Z Insertion of Infusion Device into Right Internal Jugular Vein, Percutaneous Approach (ICD-10-PCS; 2024-09-14)
PROC: B543ZZA Ultrasonography of Right Jugular Veins, Guidance (ICD-10-PCS; 2024-09-14)
PROC: 0BH17EZ Insertion of Endotracheal Airway into Trachea, Via Natural or Artificial Opening (ICD-10-PCS; 2024-09-14)
PROC: 30233N1 Transfusion of Nonautologous Red Blood Cells into Peripheral Vein, Percutaneous Approach (ICD-10-PCS; 2024-09-15)
PROC: 0DB68ZX Excision of Stomach, Via Natural or Artificial Opening Endoscopic, Diagnostic (ICD-10-PCS; 2024-09-21)
PROC: 0DB78ZX Excision of Stomach, Pylorus, Via Natural or Artificial Opening Endoscopic, Diagnostic (ICD-10-PCS; 2024-09-21)
DX: A41.1 Sepsis due to other specified staphylococcus (principal); J96.01 Acute respiratory failure with hypoxia; G92.8 Other toxic encephalopathy; J18.9 Pneumonia, unspecified organism; I85.11 Secondary esophageal varices with bleeding; R65.21 Severe sepsis with septic shock; R57.1 Hypovolemic shock; K25.4 Chronic or unspecified gastric ulcer with hemorrhage; G35 Multiple sclerosis; D69.6 Thrombocytopenia, unspecified; T51.0X1A Toxic effect of ethanol, accidental (unintentional), initial encounter; N17.9 Acute kidney failure, unspecified; D62 Acute posthemorrhagic anemia; G40.909 Epilepsy, unspecified, not intractable, without status epilepticus; E86.0 Dehydration; N20.0 Calculus of kidney; N28.1 Cyst of kidney, acquired; I71.43 Infrarenal abdominal aortic aneurysm, without rupture; K70.30 Alcoholic cirrhosis of liver without ascites; Y90.9 Presence of alcohol in blood, level not specified; R73.9 Hyperglycemia, unspecified; F41.9 Anxiety disorder, unspecified; E83.39 Other disorders of phosphorus metabolism; E83.42 Hypomagnesemia; E87.6 Hypokalemia; F10.239 Alcohol dependence with withdrawal, unspecified; W18.39XA Other fall on same level, initial encounter; K29.70 Gastritis, unspecified, without bleeding; K76.0 Fatty (change of) liver, not elsewhere classified; F41.1 Generalized anxiety disorder; S09.8XXA Other specified injuries of head, initial encounter; E83.51 Hypocalcemia; X58.XXXA Exposure to other specified factors, initial encounter; K40.20 Bilateral inguinal hernia, without obstruction or gangrene, not specified as recurrent; Z78.1 Physical restraint status; Y93.89 Activity, other specified; Y92.89 Other specified places as the place of occurrence of the external cause; Y99.8 Other external cause status
CPT/HCPCS: 31500; 36415; 36600; 71045; 71275; 74018; 74174; 74176; 76700; 80048; 80053; 80061; 80076; 80202; 80305; 80320; 81003; 82140; 82270; 82306; 82375; 82550; 82607; 82728; 82746; 82805; 82962; 83036; 83540; 83550; 83605; 83735; 83880; 83970; 84100; 84145; 84439; 84443; 84484; 85014; 85018; 85025; 85027; 85044; 85049; 86078; 86705; 86709; 86850; 86900; 86920; 87070; 87077; 87340; 87493; 88305; 88312; 88313; 92610; 93005; 94003; 94070; 94640; 94664; 97162; 98960; 99291; A6261; J0360; J1200; J1953; J2060; J2250; J2354; J2470; J2543; J2704; J2765; J3010; J3370; J3475; J3480; J3490; J7030; J7050; J7060; J7121; P9016; Q9957; Q9967; G0480